=== PATIENT | male | born 1945 | race Caucasian/White ===

== ENCOUNTER 2017-05-04 09:39 | Day surgery (SDC) | payer MEDICARE, BC ==
[~2017-05-04] VITALS: Ht 170.3 cm; Wt 131.8 kg
[2017-05-04] VITALS (488 sets, daily range): BP systolic 91–145; BP diastolic 70–102; PULSE 65–75; TEMP 98.1–98.6; O2SAT 91–100
[~2017-05-04 09:39] MED LIST: 00186-0370-20 IH; ASPIRIN 81M81 MG/TA2 PO; CARDIZEM CD 18180 MG PO; FLOMAX 0.40.4 MG/CAP PO; FLONASE NASAL S16 GM NS; LIPITOR20 MG PO; OIL OF OREGANO PO; PRILOTC PO; SINGULAIR 110 MG/TAB PO; SINGULAIR10 MG PO; TUMS EX750 MG PO; ZYRTEC 10MG; ZYRTEC 10MG10 MG PO
[2017-05-04] MEDS ORDERED: TOPROL XL 50MG50 MG PO (10:35)
[2017-05-04 10:52] LABS: HEMATOCRIT 46.6 % (42.0-52.0); HEMOGLOBIN 15.5 g/dl (13.5-18.0); MEAN CELL VOLUME 88 fl (80.0-100.0); MEAN CORPUSCULAR HEMOGLOBIN 29 pg (27.0-31.0); MEAN CORPUSCULAR HGB CONC 33 g/dl (33.0-37.0); MEAN PLATELET VOLUME 10.9 fl (7.4-10.4); PLATELET COUNT 216 K/mm3 (130-400); RED BLOOD COUNT 5.31 M/mm3 (4.20-5.60); REDCELL DISTRIBUTION WIDTH-CV 13.3 % (11.5-14.5); WHITE BLOOD COUNT 9.8 K/mm3 (4.8-10.8)
[2017-05-04 10:54] LABS: PROTHROMBIN TIME 11.5 SECONDS (9.7-12.8)
[2017-05-04 11:19] LABS: CALCIUM 10.5 mg/dL (8.4-10.2); POTASSIUM 4.4 mmol/L (3.4-5.0)
[2017-05-05] VITALS (625 sets, daily range): BP systolic 118–135; BP diastolic 75–80; PULSE 59–65; TEMP 97.7–98.3; O2SAT 88–100
[2017-05-05 05:55] LABS: BASO # 0.1 (0.0-0.2); BASO % 0.7 % (0.0-2.0); EOS # 0.3 (0.0-0.7); EOS % 2.9 % (0-4.0); GRAN # 5.9 (1.4-6.5); GRAN % 65.6 % (42.2-75.2); HEMATOCRIT 42.9 % (42.0-52.0); HEMOGLOBIN 14.1 g/dl (13.5-18.0); LYMPH # 2.2 (1.2-3.4); LYMPH % 24.6 % (20.0-51.0); MEAN CELL VOLUME 88 fl (80.0-100.0); MEAN CORPUSCULAR HEMOGLOBIN 29 pg (27.0-31.0); MEAN CORPUSCULAR HGB CONC 33 g/dl (33.0-37.0); MEAN PLATELET VOLUME 10.7 fl (7.4-10.4); MONO # 0.5 (0.1-0.6); MONO % 5.9 % (1.7-9.3); PLATELET COUNT 190 K/mm3 (130-400); RED BLOOD COUNT 4.87 M/mm3 (4.20-5.60); REDCELL DISTRIBUTION WIDTH-CV 13.3 % (11.5-14.5)
[2017-05-05 06:07] LABS: CALCIUM 9.3 mg/dL (8.4-10.2); CREATININE, serum 0.98 mg/dL (0.66-1.25); POTASSIUM 4.3 mmol/L (3.4-5.0)
[2017-05-05] MEDS ORDERED: BRILINTA90 MG PO (11:20)
[2017-05-05] MEDS ORDERED: ASPIRIN 81M81 MG/TA2 PO (11:20)
[2017-05-05] MEDS ORDERED: NITROSTAT0.4 MG/TAB SL (11:21)
== END 2017-05-05 14:40 | disposition home or self-care (01) ==
LOC: EUO 09:39 → ICU 14:14 → EUO 05-05 14:40
PROVIDERS: Internal Medicine Cardiovascular Disease
DX: I25.10 Atherosclerotic heart disease of native coronary artery without angina pectoris (principal); I35.0 Nonrheumatic aortic (valve) stenosis; I71.2 Thoracic aortic aneurysm, without rupture; R60.0 Localized edema; I10 Essential (primary) hypertension; E78.5 Hyperlipidemia, unspecified; G47.33 Obstructive sleep apnea (adult) (pediatric); J45.909 Unspecified asthma, uncomplicated; Q23.1 Congenital insufficiency of aortic valve
CPT/HCPCS: OP; C1725; C1760; C1769; C1876; C1887; C1894; J0583; J2250; J3010; Q9967

== ENCOUNTER → 2021-06-18 | Outpatient (CLI) | payer MEDICARE, OTHER ==
[~2021-06-18] MED LIST changes: +BRILINTA90 MG PO; +NITROSTAT0.4 MG/TAB SL; +TOPROL XL 50MG50 MG PO
== END ==
LOC: COL.RAD 13:52
DX: Z12.2 Encounter for screening for malignant neoplasm of respiratory organs (principal); F17.210 Nicotine dependence, cigarettes, uncomplicated